=== PATIENT | male | born 1940 | race Caucasian/White ===

== ENCOUNTER → 2016-06-24 | Outpatient (CLI) | payer MEDICARE, OTHER ==
[~2016-06-24] MED LIST: AVOD0.5C PO; CARD4TAB2 PO; CEFT500T PO; DOXA4TAB PO; GABA300C2 PO; METF500T PO; TYLE650T30 PO
== END | disposition home or self-care (01) ==
LOC: M LAB 11:48
PROVIDERS: ATTEND Nurse Practitioner Adult Health
DX: R31.21 Asymptomatic microscopic hematuria (principal)

== ENCOUNTER → 2016-08-16 | Outpatient (REF) | payer MEDICARE, OTHER | LOC: M LAB REF 12:17 | PROVIDERS: ATTEND Internal Medicine | DX: I10 Essential (primary) hypertension (principal); N39.0 Urinary tract infection, site not specified ==

== ENCOUNTER → 2016-12-25 | Outpatient (CLI) | payer MEDICARE, OTHER | LOC: M LAB 15:14 | PROVIDERS: ATTEND Nurse Practitioner Adult Health | DX: N40.1 Benign prostatic hyperplasia with lower urinary tract symptoms (principal) | CPT/HCPCS: 36415; G0103 ==

== ENCOUNTER → 2017-05-08 | Outpatient (REF) | payer MEDICARE, OTHER | LOC: M LAB REF 17:33 | PROVIDERS: ATTEND Internal Medicine | DX: R30.0 Dysuria (principal) ==

== ENCOUNTER → 2017-08-23 | Outpatient (REF) | payer MEDICARE, OTHER | LOC: M LAB REF 17:03 | DX: R30.0 Dysuria (principal) | CPT/HCPCS: 87086 ==

== ENCOUNTER → 2017-09-14 | Outpatient (CLI) | payer MEDICARE, OTHER ==
[2017-09-14 14:08] LABS: BASO % 0.4 % (0.0-1.0); EOS # 0.2 10^3/uL (0.0-0.50); EOS % 2.3 % (0.0-3.0); HEMATOCRIT 37.3 % (42.0-52.0); HEMOGLOBIN 13.2 g/dl (13.5-17.5); IMMATURE GRANULOCYTE % 0.4 % (0-3.0); LYMPH # 1.7 10^3/uL (1.5-4.5); LYMPH % 22.8 % (24.0-44.0); MEAN CORPUSCULAR HEMOGLOBIN 32.2 pg (27.0-33.0); MEAN CORPUSCULAR HGB CONC 35.4 g/dl (32.0-36.5); MONO # 0.5 10^3/uL (0.0-0.8); MONO % 7.2 % (0.0-5.0); NEUTROPHILS % 66.9 % (36.0-66.0); PLATELET COUNT, AUTOMATED 163 10^3/uL (150-450); WHITE BLOOD COUNT 7.5 10^3/uL (4.0-10.0)
[2017-09-14 14:48] LABS: ANION GAP 5 MEQ/L (8-16); BLOOD UREA NITROGEN 24 MG/DL (7-18); CALCIUM LEVEL 8.7 MG/DL (8.8-10.2); CARBON DIOXIDE LEVEL 27 MEQ/L (21-32); CHLORIDE LEVEL 112 MEQ/L (98-107); CREATININE FOR GFR 1.18 MG/DL (0.70-1.30); GLOMERULAR FILTRATION RATE > 60.0 (>42); GLUCOSE, FASTING 135 MG/DL (70-100); POTASSIUM SERUM 4.3 MEQ/L (3.5-5.1); SODIUM LEVEL 144 MEQ/L (136-145)
== END ==
LOC: M LAB 13:42
DX: R94.39 Abnormal result of other cardiovascular function study (principal)
CPT/HCPCS: 80048

== ENCOUNTER → 2017-12-31 | Outpatient (CLI) | payer MEDICARE, OTHER ==
[2017-12-31 10:15] LABS: PSA SCREENING 3.13 NG/ML (< 4.0)
== END ==
LOC: M LAB 07:47
DX: N40.1 Benign prostatic hyperplasia with lower urinary tract symptoms (principal)
CPT/HCPCS: G0103

== ENCOUNTER → 2018-10-31 | Outpatient (REF) | payer MEDICARE, OTHER ==
[2018-11-03 00:06] LABS: Lyme Disease IgG/IgM Antibodie <0.91 ISR (0.00-0.90); Lyme Disease IgM Ab Quantitati <0.80 index (0.00-0.79)
== END ==
LOC: M LAB REF 16:57
PROVIDERS: ATTEND Internal Medicine
DX: M25.50 Pain in unspecified joint (principal)

== ENCOUNTER 2019-10-22 15:46 | Inpatient (IN) | payer MEDICARE, OTHER ==
[~2019-10-22] VITALS: Ht 195.6 cm; Wt 91.0 kg
[2019-10-22] MEDS ORDERED: LOSA25TA14 PO (16:45)
[2019-10-22] MEDS ORDERED: FINA5TAB2 PO (16:45)
[2019-10-22] MEDS ORDERED: MONT10TA4 PO (16:45)
[2019-10-22 16:47] LABS: BASO % 0.3 % (0.0-1.0); EOS # 0.1 10^3/uL (0.0-0.5); EOS % 1.5 % (0.0-3.0); HEMATOCRIT 34.5 % (42.0-52.0); HEMOGLOBIN 12.3 g/dl (13.5-17.5); MEAN CORPUSCULAR HEMOGLOBIN 32.4 pg (27.0-33.0); MEAN CORPUSCULAR HGB CONC 35.7 g/dl (32.0-36.5); MEAN CORPUSCULAR VOLUME 90.8 fl (80.0-96.0); MONO # 0.4 10^3/uL (0.0-0.8); MONO % 5.9 % (0.0-5.0); NEUTROPHILS # 5.3 10^3/uL (1.5-8.5); NEUTROPHILS % 77.7 % (36.0-66.0); PLATELET COUNT, AUTOMATED 159 10^3/uL (150-450); WHITE BLOOD COUNT 6.8 10^3/uL (4.0-10.0)
--- NOTE | 2019-10-22 16:53 | REP ---
Portable chest x-ray: Single view. History: CVA. No comparison study. Findings: The lungs are mildly hyperinflated but clear. Pleural angles are sharp. Heart size is normal. Monitoring electrodes are seen. Pulmonary vasculature is not increased. There are degenerative changes in the thoracic spine. Impression: Mild hyperinflation. Otherwise no acute disease. Electronically Signed by Duran Orosco MD 10/22/2019 04:44 P
[2019-10-22 16:59] LABS: INR 1.04; PROTHROMBIN TIME 13.3 SECONDS (11.8-14.0)
[2019-10-22 17:00] LABS: PARTIAL THROMBOPLASTIN TIME 28.5 SECONDS (25.0-38.4)
--- NOTE | 2019-10-22 17:00 | REP ---
CT BRAIN WITHOUT CONTRAST: HISTORY: CVA. No comparison head CT study. CT FINDINGS: Digital preliminary bilingual speech language pathologist radiograph is unremarkable. Bone window settings demonstrate an intact bony calvarium. There is some mild vascular calcification in the distal internal carotid arteries. Visualized paranasal sinuses are clear. No intraorbital abnormality is appreciated. On soft tissue window settings, there is generalized volume loss. Physiologic calcification is seen in the basal ganglia bilaterally. There is no evidence of intracranial hemorrhage. No acute infarction is apparent. There is no evidence of extra-axial fluid collection, mass, edema, or midline shift. IMPRESSION: Generalized atrophy and vascular calcification. Physiologic basal ganglia calcification. No acute intracranial lesion. Electronically Signed by Duran Orosco MD 10/23/2019 08:30 A
[2019-10-22 17:15] LABS: ALBUMIN 3.7 GM/DL (3.2-5.2); ALT/SGPT 30 U/L (12-78); BILIRUBIN,DIRECT 0.1 MG/DL (0.0-0.2); BILIRUBIN,TOTAL 0.3 MG/DL (0.2-1.0); BLOOD UREA NITROGEN 29 MG/DL (7-18); CALCIUM LEVEL 8.6 MG/DL (8.8-10.2); CARBON DIOXIDE LEVEL 28 MEQ/L (21-32); CHLORIDE LEVEL 107 MEQ/L (98-107); CK-MB VALUE MASS 2.8 NG/ML (<3.6); CPK CREATINE PHOSPHOKINASE 174 U/L (39-308); CREATININE FOR GFR 0.98 MG/DL (0.70-1.30); GLOMERULAR FILTRATION RATE > 60.0 (>42); GLUCOSE, FASTING 131 MG/DL (70-100); MB/CK RELATIVE INDEX 1.61 (< OR =4); POTASSIUM SERUM 4.4 MEQ/L (3.5-5.1); SODIUM LEVEL 140 MEQ/L (136-145); TOTAL PROTEIN 7.3 GM/DL (6.4-8.2); TROPONIN I < 0.02 NG/ML (< 0.10)
[2019-10-22] MEDS ORDERED: ASPIRIN 81 MG CHEW TABLET PO ONE (17:30)
[2019-10-22] MEDS ORDERED: APAP325T4 PO (17:31)
[2019-10-22] MEDS ORDERED: DOXA1TAB67 PO (17:31)
[2019-10-22] MEDS ORDERED: METF-838 PO (17:31)
[2019-10-22] MEDS ORDERED: GLUCOSE 4GM CHEW TABLET PO PRN (18:45)
[2019-10-22] MEDS ORDERED: GLUCAGON INJ 1MG VIAL SC PRN (18:45)
[2019-10-22] MEDS ORDERED: DEXTROSE 50% 50 ML SYRINGE IV PRN (18:45)
[2019-10-22] MEDS ORDERED: ACETAMINOPHEN TAB 650MG DOSE (2X325MG) PO PRN (18:45)
--- NOTE | 2019-10-22 18:48 | HPEPDOC ---
General Date of Admission October 22, 2019 at 18:28 Date of Service: October 22, 2019 Chief Complaint The patient is a 79-year-old male who presented to the hospital after experiencing visual changes for 1 hour History of Present Illness Patient is a 79-year-old male with a PMHx of HTN, NIDDM2, DLP, Recurrent bladder stones, BPH (Follows with Dr. Workman), Hx of Shingles (with resulting neuropathy) who was presented to the hospital after experiencing cloudy vision and unsteady gait earlier today. Patient reported that early this afternoon he was driving to the [place] alone at 1:45PM and began to experience blurring of his vision. He continued to drive and noticed that his vision continued to worsen. After 15 minutes, he decided to return back home because of the progression of his symptoms. Upon arrival to his home at 220PM he cut out of the car and noted that he was having an unsteady /staggered gait. By 2:45 PM patient had full resolution of his symptoms. He had contacted his daughter who had advised him to go to the emergency room for further evaluation. Patient reports that hes never experienced similar episodes in the past. Injuring this time. He had denied any chest pain, shortness of breath, palpitations, nausea, vomiting, abdominal pain. Patient has not experienced any LA or stroke in the past. He does not have any recent history of constipation, diarrhea, or urinary discomfort. . He does report some urination problems associated with his enlarged prostate. Has not experienced any fevers or chills. Notes that his appetite is fairly normal without any significant changes in his weight. Home Medications Scheduled Doxazosin Mesylate (Doxazosin) 4 Mg Tablet, 4 MG PO QHS, (Reported) Finasteride (Finasteride) 5 Mg Tablet, 5 MG PO QHS, (Reported) Losartan Potassium (Losartan Potassium) 25 Mg Tablet, 25 MG PO DAILY, (Reported) Metformin HCl (Metformin HCl ER) 500 Mg Tab.er.24h, 1,000 MG PO BID, (Reported) Montelukast Sodium (Montelukast Sodium) 10 Mg Tablet, 10 MG PO QHS, (Reported) Scheduled PRN Acetaminophen (Acetaminophen) 325 Mg Tablet, 650 MG PO Q4H PRN for PAIN, (Reported) Allergies Coded Allergies: No Known Allergies (Unverified , 4/11/14) Past Medical History Medical History HTN, NIDDM2, DLP, Recurrent bladder stones, BPH (Follows with Dr. Workman), Hx of Shingles (with resulting neuropathy) Surgical History Bilateral inguinal hernias were never repaired Excision of nodule on his posterior scalp Colonoscopy completed in [address] Workman Family History - Mother with a history of diabetes and stroke - Father with a history of Parkinsons Social History - Denies the use of alcohol, tobacco or illicit drugs - Denies recent travel or sick contacts - Lives alone - Occupation; patient is a retired tool room machinist Review of Systems Other systems 10 point review of systems complete, all negative otherwise stated in HPI Vital Signs - Vitals: BP 135/73, HR 65, RR 18, Sat 97%RA, Temp 97.8F - General: Lying in bed, No acute distress, Speaking in full sentences, AAOx3 - HEENT: NC, AT, PERRLA, EOMI - CVS: RRR, +S1S2 - Lungs: Fair air entry bilaterally, No appreciable wheezing / rales / rhonchi - Abdomen: Soft, Non-distended, Non-tender - Extremities: No lower extremity edema, No calf tenderness - Neuro: 5/5 strength in upper and lower extremities bilaterally, cranial nerves II through XII are grossly intact - Skin: No visible rashes Laboratory Data Labs 24H Laboratory Tests 2 10/22/19 16:31: Immature Granulocyte % (Auto) 0.6, Neutrophils (%) (Auto) 77.7H, Lymphocytes (%) (Auto) 14.0L, Monocytes (%) (Auto) 5.9H, Eosinophils (%) (Auto) 1.5, Basophils (%) (Auto) 0.3, Neutrophils # (Auto) 5.3, Lymphocytes # (Auto) 1.0L, Monocytes # (Auto) 0.4, Eosinophils # (Auto) 0.1, Basophils # (Auto) 0.0, Nucleated Red Blood Cells % (auto) 0.0, Prothrombin Time 13.3, Prothromb Time International Ratio 1.04, Activated Partial Thromboplast Time 28.5, Anion Gap 5L, Glomerular Filtration Rate > 60.0, Calcium Level 8.6L, Total Bilirubin 0.3, Direct Bilirubin 0.1, Aspartate Amino Transf (AST/SGOT) 17, Alanine Aminotransferase (ALT/SGPT) 30, Alkaline Phosphatase 88, Total Creatine Kinase 174, Creatine Kinase MB 2.8, Creatine Kinase MB Relative Index 1.61, Troponin I < 0.02, Total Protein 7.3, Albumin 3.7, Albumin/Globulin Ratio 1.0, Thyroid Stimulating Hormone (TSH) 2.300 10/22/19 16:38: Bedside Glucose (Misc Panel) 130H CBC/BMP Laboratory Tests 10/22/19 16:31 Plan / VTE VTE Prophylaxis Ordered?: Yes Plan Plan Transient blurred vision/unsteady gait - possibly 2/2 TIA, less likely 2/2 CVA - Patient has presented to the emergency room after experiencing an hour duration of visual changes and unsteady gait - Patient had resolution of his symptoms prior to arrival to the emergency room - No prior history of strokes or heart attacks - Patient has been advised to take statins as an outpatient, however, had refused because of myalgias - Physical currently reveals full strength upper and lower strength is bilaterally without any deficits in cranial nerves II through XII - CT head 10/21: Generalized atrophy and vascular calcification. Physiologic basal ganglia calcification. No acute intracranial lesion. - At this point, we will admit patient to the telemetry floor - Continue with neurological checks every 4 hours - Will check MRI and MRA of brain, duplex ultrasound of carotid and echocardiogram - Patient has received aspirin in the ER will c/w ASA 81 daily - Patient has agreed to take pravastatin HTN - Patients blood pressure while examining him in the room was systolics of 150 - Will allow for permissive hypertension (re: pending MRI) - Will continue to monitor for now - Awaiting results of MRI; will optimize blood pressure control if no evidence of stroke - Will hold Losartan for now NIDDM2 - Will check A1c - Will hold Metformin - Will start ISS DLP - Will check lipid panel - Will start Pravastatin Recurrent bladder stones / BPH - Will start Doxazosin and Finasteride - Follows with Dr. Workman Hx of Shingles (with resulting neuropathy) - c/w Tylenol PRN DVT prophylaxis - Will start Heparin CATHRYN VALENZUELA MD October 22, 2019 18:48
--- NOTE | 2019-10-22 19:55 | REPVR ---
PROCEDURE INFORMATION: Exam: MR Head Without Contrast Exam date and time: 10/22/2019 6:28 PM Age: 79 years old Clinical indication: Visual disturbance; Additional info: Possible stroke / blurred vision TECHNIQUE: Imaging protocol: MR of the head without contrast. COMPARISON: CT Head without contrast 10/22/2019 4:16 PM FINDINGS: Brain: There is a small asymmetric focus of hyperintensity on diffusion involving the right occipital cortex. This is visualized on series 504 frame 12. No abnormal signal intensity is visualized on the remaining sequences. No hypointensity is visualized on the ADC trace sequence. This can be contributed by artifact although subacute infarct is also considered. There are scattered foci of FLAIR hyperintensity within the cerebral white matter. There is no mass effect or restricted diffusion associated with these foci. In a patient this age, this likely represents chronic small vessel ischemic disease. Magnetic susceptibility mineralization or hemosiderin identified within the bilateral basal ganglia. No intracranial mass effect. No cerebral edema. Ventricles: There is mild prominence of the ventricles and sulci, compatible with atrophy. Bones/joints: Unremarkable, as visualized. Soft tissues: Unremarkable, as visualized. Sinuses: Normal as visualized. No acute sinusitis. Mastoid air cells: No mastoid effusion. Orbits: No acute abnormality visualized. IMPRESSION: 1. There is a small asymmetric focus of hyperintensity on diffusion involving the right occipital cortex. This can be contributed by artifact although subacute infarct is also considered. 2. There are scattered foci of FLAIR hyperintensity within the cerebral white matter. In a patient this age, this likely represents chronic small vessel ischemic disease. 3. Mild atrophy. 4. Additional findings described above. Electronically signed by: Anurag Chin On 10/22/2019 19:55:24 PM
--- NOTE | 2019-10-22 20:02 | REPVR ---
PROCEDURE INFORMATION: Exam: MR Angiogram Head Without Contrast, Arteries Exam date and time: 10/22/2019 6:28 PM Age: 79 years old Clinical indication: Visual disturbance; Diplopia; Additional info: Possible stroke / blurred vision TECHNIQUE: Imaging protocol: MR angiogram head without contrast. Exam focused on the arteries. COMPARISON: CT Head without contrast 10/22/2019 4:16 PM FINDINGS: Anterior cerebral arteries: Intracranial segment is patent with no significant stenosis. No aneurysm. Right internal carotid artery: Less than 50% luminal narrowing or stenosis of the petrous right internal carotid artery. No aneurysm. Right middle cerebral artery: No occlusion or significant stenosis. No aneurysm. Right posterior cerebral artery: Persistence of the origin of the right posterior cerebral artery. The P1 segment of the right EDGE BLACKER is hypoplastic. No significant stenosis or occlusion of the remaining right EDGE BLACKER. There is a decrease in the signal intensity on reconstructed images involving the right EDGE BLACKER, without significant stenosis or occlusion on source images. No aneurysm. Right vertebral artery: No occlusion or significant stenosis. No aneurysm. 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 No aneurysm. Left middle cerebral artery: No occlusion or significant stenosis. No aneurysm. Left posterior cerebral artery: No occlusion or significant stenosis. No aneurysm. Left vertebral artery: No occlusion or significant stenosis. No aneurysm. Basilar artery: No occlusion or significant stenosis. No aneurysm. IMPRESSION: 1. 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 2. Less than 50% luminal narrowing or stenosis of the petrous right internal carotid artery. 3. Additional findings described above. Electronically signed by: Anurag Chin On 10/22/2019 20:02:47 PM
--- NOTE | 2019-10-22 20:27 | REPVR ---
PROCEDURE INFORMATION: Exam: US Duplex Bilateral Extracranial Arteries Exam date and time: 10/22/2019 7:57 PM Age: 79 years old Clinical indication: Visual disturbance and walking, difficulty; Additional info: Possible stroke TECHNIQUE: Imaging protocol: Real-time Duplex ultrasound scan of the bilateral carotid and vertebral arteries combining armendariz scale, color Doppler and spectral waveform analysis. Bilateral exam. COMPARISON: CT Head without contrast 10/22/2019 4:16 PM FINDINGS: Right common carotid artery: No occlusion or stenosis. Waveforms are normal. Peak systolic velocity of 102.7 cm/s. Right internal carotid artery: Mild atherosclerotic plaque involves the right carotid bifurcation. The peak systolic velocity within the proximal right internal carotid artery is 84.9 cm/s. This is consistent with less than 50% stenosis. Right ICA/CCA ratio: 0.83. Right external carotid artery: No stenosis in the origin. Right vertebral artery: Antegrade flow. Left common carotid artery: No occlusion or stenosis. Waveforms are normal. Peak systolic velocity of 112.1 cm/s. Left internal carotid artery: Mild atherosclerotic plaque involves the left carotid bifurcation. The peak systolic velocity within the proximal left internal carotid artery is 58.6 cm/s. This is consistent with less than 50% stenosis. Left ICA/CCA ratio: 0.52. Left external carotid artery: No stenosis in the origin. Left vertebral artery: Antegrade flow. IMPRESSION: 1. Mild atherosclerotic plaque involves the bilateral carotid bifurcations. Less than 50% stenosis of the proximal internal carotid arteries bilaterally. 2. Additional findings described above. REFERENCES: SRU CRITERIA. The degree of internal carotid artery stenosis is based on criteria defined by the Society of Radiologists in Ultrasound (SRU). Normal is no stenosis. Mild is less than 50% stenosis. Moderate is 50-69% stenosis. Severe is greater than 69% stenosis to near occlusion. Near occlusion is a markedly narrowed lumen. Total occlusion is no detectable patent lumen. Electronically signed by: Anurag Chin On 10/22/2019 20:27:11 PM
[2019-10-22 21:00] VITALS: BP 158/68
[2019-10-22] MEDS ORDERED: HumaLOG INSULIN (NovoLOG) PER UNIT SC SCH (21:00)
[2019-10-22] MEDS ORDERED: FINASTERIDE 5 MG TAB PO SCH (21:00)
[2019-10-22] MEDS ORDERED: MONTELUKAST 10 MG TAB PO SCH (21:00)
[2019-10-22] MEDS ORDERED: DOXAZOSIN MESYLATE 4 MG TAB PO SCH (21:00)
[2019-10-22] MEDS ORDERED: PRAVASTATIN 20 MG TAB PO SCH (21:00)
--- NOTE | 2019-10-22 21:16 | ECGEPIP ---
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
[2019-10-22] MEDS: HEPARIN SOD (PORCINE) 5000UNITS/ML VIAL (J1644 PER 1000UNITS) SQ SCH (21:46)
[2019-10-23] VITALS: BP 138/76
[2019-10-23 04:00] VITALS: BP 122/68
[2019-10-23] MEDS: HEPARIN SOD (PORCINE) 5000UNITS/ML VIAL (J1644 PER 1000UNITS) SQ SCH (05:00)
[2019-10-23 05:10] LABS: BASO % 0.3 % (0.0-1.0); EOS # 0.2 10^3/uL (0.0-0.5); EOS % 2.6 % (0.0-3.0); HEMATOCRIT 32.9 % (42.0-52.0); HEMOGLOBIN 11.6 g/dl (13.5-17.5); LYMPH # 1.7 10^3/uL (1.5-5.0); LYMPH % 27.4 % (24.0-44.0); MEAN CORPUSCULAR HEMOGLOBIN 31.8 pg (27.0-33.0); MEAN CORPUSCULAR HGB CONC 35.3 g/dl (32.0-36.5); MEAN CORPUSCULAR VOLUME 90.1 fl (80.0-96.0); MONO # 0.4 10^3/uL (0.0-0.8); MONO % 6.9 % (0.0-5.0); NEUTROPHILS # 3.9 10^3/uL (1.5-8.5); NEUTROPHILS % 62.2 % (36.0-66.0); PLATELET COUNT, AUTOMATED 145 10^3/uL (150-450); RED BLOOD COUNT 3.65 10^6/uL (4.30-6.10); WHITE BLOOD COUNT 6.2 10^3/uL (4.0-10.0)
[2019-10-23 05:26] LABS: HEMOGLOBIN A1c 6.8 %
[2019-10-23 05:29] LABS: BLOOD UREA NITROGEN 24 MG/DL (7-18); CALCIUM LEVEL 8.3 MG/DL (8.8-10.2); CARBON DIOXIDE LEVEL 23 MEQ/L (21-32); CHLORIDE LEVEL 111 MEQ/L (98-107); CHOLESTEROL LEVEL 165 MG/DL (<200); CHOLESTEROL RISK RATIO 4.583 (<5); GLOMERULAR FILTRATION RATE > 60.0 (>42); GLUCOSE, FASTING 117 MG/DL (70-100); HDL CHOLESTEROL 36 MG/DL (>40); LDL CHOLESTEROL 83 MG/DL (<100); MAGNESIUM LEVEL 1.9 MG/DL (1.8-2.4); NON-HDL-C 129 MG/DL; POTASSIUM SERUM 3.9 MEQ/L (3.5-5.1); SODIUM LEVEL 142 MEQ/L (136-145); TRIGLYCERIDES LEVEL 228 MG/DL (<150)
[2019-10-23] MEDS: HumaLOG INSULIN (NovoLOG) PER UNIT SC SCH ×2 (07:30→13:47)
[2019-10-23 08:00] VITALS: BP 142/84
[2019-10-23] MEDS ORDERED: SLF 3 ML SYR IV PRN (08:30)
[2019-10-23] MEDS ORDERED: PRAV1TAB39 PO (08:58)
[2019-10-23] MEDS ORDERED: ASPI81CH8 PO (08:58)
[2019-10-23] MEDS ORDERED: ASPIRIN 81 MG CHEW TABLET PO SCH (09:00)
[2019-10-23] MEDS ORDERED: LOSARTAN 25 MG TAB PO SCH (09:00)
[2019-10-23 09:06] VITALS: BP 142/84
--- NOTE | 2019-10-23 11:28 | DS.PDOC ---
Discharge Summary General Date of Admission October 22, 2019 at 18:28 Date of Discharge 10/23/2019 Discharge Summary PROCEDURES PERFORMED DURING STAY: [None]. ADMITTING DIAGNOSES / DISCHARGE DIAGNOSES: Transient blurred vision/unsteady gait - possibly 2/2 TIA, possibly 2/2 subacute CVA at R occipital region HTN NIDDM2 DLP Recurrent bladder stones / BPH Hx of Shingles (with resulting neuropathy) DVT prophylaxis COMPLICATIONS/CHIEF COMPLAINT: Blurred Vision. HISTORY OF PRESENT ILLNESS: Patient is a 79-year-old male with a PMHx of HTN, NIDDM2, DLP, Recurrent bladder stones, BPH (Follows with Dr. Workman), Hx of Shingles (with resulting neuropathy) who was presented to the hospital after experiencing cloudy vision and unsteady gait earlier today. Patient reported that early this afternoon he was driving to the [place] alone at 1:45PM and began to experience blurring of his vision. He continued to drive and noticed that his vision continued to worsen. After 15 minutes, he decided to return back home because of the progression of his symptoms. Upon arrival to his home at 220PM he cut out of the car and noted that he was having an unsteady/staggered gait. By 2:45 PM patient had full resolution of his symptoms. He had contacted his daughter who had advised him to go to the emergency room for further evaluation. Patient was admitted to the hospitalist service for further evaluation and treatment. HOSPITAL COURSE: Transient blurred vision/unsteady gait - possibly 2/2 TIA, possibly 2/2 subacute CVA at R occipital region - Currently patient has had resolution of his symptoms - No prior history of strokes or heart attacks - Patient has been advised to take statins as an outpatient, however, had refused because of myalgias - No neurological deficits noted on exam today - CT head 10/21: Generalized atrophy and vascular calcification. Physiologic basal ganglia calcification. No acute intracranial lesion. - MRI brain 10/21: 1. There is a small asymmetric focus of hyperintensity on diffusion involving the right occipital cortex. This can be contributed by artifact although subacute infarct is also considered. 2. There are scattered foci of FLAIR hyperintensity within the cerebral white matter. In a patient this age, this likely represents chronic small vessel ischemic disease. 3. Mild atrophy. 4. Additional findings described above. - MRA brain 10/21: 1. 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 2. Less than 50% luminal narrowing or stenosis of the petrous right internal carotid artery. 3. Additional findings described above. - Duplex US Carotid 10/21: 1. Mild atherosclerotic plaque involves the bilateral carotid bifurcations. Less than 50% stenosis of the proximal internal carotid arteries bilaterally. 2. Additional findings described above. - Echocardiogram will be completed prior to discharge; patient will follow up with PCP for results - Advised importance with compliance with ASA 81 and Pravastatin daily - Will have outpatient follow up with PCP and Neurology within 7 days HTN - BP better controlled - c/w Losartan for now NIDDM2 - A1c of 6..8 - c/w ISS while inpatient; will resume Metformin on discharge DLP - Lipid panel with elevated triglycerides - Will continue with current medications and have outpatient follow up with PCP for follow up studies - c/w Pravastatin Recurrent bladder stones / BPH - c/w Doxazosin and Finasteride - Follows with Dr. Workman Hx of Shingles (with resulting neuropathy) - c/w Tylenol PRN DVT prophylaxis - c/w Heparin DISCHARGE MEDICATIONS: Please see below. ALLERGIES: Please see below. PHYSICAL EXAMINATION ON DISCHARGE: Vitals (See below) General: Lying in bed, appears comfortable, AAOx3 HEENT: NC, AT CVS: RRR, +S1S2 Lungs: Fair air entry b/l, no appreciable wheezing / rhonchi / crackles Abdomen: Soft, non-distended / non-tender Extremities: No evidence of LE edema, - Calf tenderness LABORATORY DATA: Please see below. ACTIVITY: [As tolerated]. DISCHARGE PLAN: Follow-up with [facility] Loa[facility] and neurology within 7 days Remain compliant with treatment plan and medications Return to the ER if you experience any problems DISPOSITION: Home DISCHARGE CONDITION: [Stable]. TIME SPENT ON DISCHARGE: 35 minutes Vital Signs/I&Os Vital Signs Date Time Temp Pulse Resp B/P (MAP) Pulse Ox O2 Delivery O2 Flow Rate FiO2 10/23/19 09:06 142/84 10/23/19 08:00 97.3 67 18 98 Room Air I&O- Last 24 Hours up to 6 AM 10/23/19 05:59 Intake Total 0 ml Output Total 550 ml Balance -550 ml Laboratory Data Labs 24H Laboratory Tests 2 10/22/19 16:31: Immature Granulocyte % (Auto) 0.6, Neutrophils (%) (Auto) 77.7H, Lymphocytes (%) (Auto) 14.0L, Monocytes (%) (Auto) 5.9H, Eosinophils (%) (Auto) 1.5, Basophils (%) (Auto) 0.3, Neutrophils # (Auto) 5.3, Lymphocytes # (Auto) 1.0L, Monocytes # (Auto) 0.4, Eosinophils # (Auto) 0.1, Basophils # (Auto) 0.0, Nucleated Red Blood Cells % (auto) 0.0, Prothrombin Time 13.3, Prothromb Time International Ratio 1.04, Activated Partial Thromboplast Time 28.5, Anion Gap 5L, Glomerular Filtration Rate > 60.0, Calcium Level 8.6L, Total Bilirubin 0.3, Direct Bilirubin 0.1, Aspartate Amino Transf (AST/SGOT) 17, Alanine Aminotransferase (ALT/SGPT) 30, Alkaline Phosphatase 88, Total Creatine Kinase 174, Creatine Kinase MB 2.8, Creatine Kinase MB Relative Index 1.61, Troponin I < 0.02, Total Protein 7.3, Albumin 3.7, Albumin/Globulin Ratio 1.0, Thyroid Stimulating Hormone (TSH) 2.300 10/22/19 16:38: Bedside Glucose (Misc Panel) 130H 10/22/19 21:26: Bedside Glucose (Misc Panel) 259H 10/23/19 04:45: Immature Granulocyte % (Auto) 0.6, Neutrophils (%) (Auto) 62.2, Lymphocytes (%) (Auto) 27.4, Monocytes (%) (Auto) 6.9H, Eosinophils (%) (Auto) 2.6, Basophils (%) (Auto) 0.3, Neutrophils # (Auto) 3.9, Lymphocytes # (Auto) 1.7, Monocytes # (Auto) 0.4, Eosinophils # (Auto) 0.2, Basophils # (Auto) 0.0, Nucleated Red Blood Cells % (auto) 0.0, Anion Gap 8, Glomerular Filtration Rate > 60.0, Calcium Level 8.3L, Estimated Mean Plasma Glucose 148H, Hemoglobin A1c 6.8, Magnesium Level 1.9, Triglycerides Level 228H, Total Cholesterol 165, LDL Cholesterol 83, Non-HDL Cholesterol (LDL + VLDL) 129, Total HDL Cholesterol 36L, Cholesterol/HDL Ratio 4.583 CBC/BMP Laboratory Tests 10/22/19 16:31 10/23/19 04:45 FSBS Laboratory Tests Test 10/22/19 16:38 10/22/19 21:26 Range/Units Bedside Glucose (Misc Panel) 130 259 83-110 MG/DL Discharge Medications Scheduled Aspirin (Children's Aspirin) 81 Mg Tab.chew, 81 MG PO DAILY Doxazosin Mesylate (Doxazosin) 4 Mg Tablet, 4 MG PO QHS, (Reported) Finasteride (Finasteride) 5 Mg Tablet, 5 MG PO QHS, (Reported) Losartan Potassium (Losartan Potassium) 25 Mg Tablet, 25 MG PO DAILY, (Reported) Metformin HCl (Metformin HCl ER) 500 Mg Tab.er.24h, 1,000 MG PO BID, (Reported) Montelukast Sodium (Montelukast Sodium) 10 Mg Tablet, 10 MG PO QHS, (Reported) Pravastatin Sodium (Pravachol) 20 Mg Tablet, 40 MG PO QHS Scheduled PRN Acetaminophen (Acetaminophen) 325 Mg Tablet, 650 MG PO Q4H PRN for PAIN, (Reported) Allergies Coded Allergies: No Known Allergies (Unverified , 09/12/13) CATHRYN VALENZUELA MD October 23, 2019 11:28
[2019-10-23] MEDS ORDERED: SLF 3 ML SYR IV SCH (14:00)
--- NOTE | 2019-10-24 05:12 | ECHO ---
DATE OF PROCEDURE: 10/23/2019 PATIENT LOCATION: Room 3214. REFERRING PROVIDER: Dr. Mana Rodriguez REASON FOR THE STUDY: CVA. 2D MEASUREMENTS: IVS: 1.0 cm LV: 4.8 cm LVPW: 1.1 cm LA: 3.7 cm Aorta: 3.6 cm IVC: 2.3 cm DOPPLER MEASUREMENTS: Peak velocity across the aortic valve 1.2 m/s Peak velocity across the LVOT: 0.77 m/s Mitral E: 0.72 Mitral A: 0.93 with a ratio of 0.8 Maximum tricuspid valve velocity: 2.4 m/s 2D COMMENTS: 1. Normal left ventricular size, wall thickness, and normal global left ventricular systolic function. The estimated left ventricular systolic ejection fraction is 60-65%. 2. Normal left atrium. The right atrium appeared to be mildly enlarged. Normal right ventricle. 3. The atrial septum appeared to be normal without evidence of defect or shunt. 4. Trace pericardial effusion noted; no evidence of cardiac tamponade. 5. Normal aortic valve, mitral valve, tricuspid valve, and pulmonic valve. The proximal pulmonary artery branches were not well visualized. 6. The inferior vena cava was mildly enlarged; central venous pressure might be elevated. DOPPLER: Only trace to mild tricuspid regurgitation detected. The calculated pulmonary artery systolic pressure varies between 30 to 40 mmHg. Abnormal relaxation pattern was noted across the mitral valve leaflets as well as the mitral valve annulus, consistent with features of grade 1 left ventricular diastolic dysfunction. IMPRESSION: 1. Normal global left ventricular systolic function. There were some features of left ventricular diastolic dysfunction manifested by abnormal relaxation. 2. Trace to mild tricuspid regurgitation with probably mild pulmonary hypertension. 3. Trace pericardial effusion; no evidence of cardiac tamponade. 4. The inferior vena cava was mildly enlarged; central venous pressure might be elevated.
== END 2019-10-23 14:39 | disposition home or self-care (01) | DRG 66 ==
LOC: M ED 15:46 → M ED INP 18:28 → ENRESERV 18:39 → M PCU 21:15
PROVIDERS: ADMIT Internal Medicine; ATTEND Internal Medicine
DX: I63.59 Cerebral infarction due to unspecified occlusion or stenosis of other cerebral artery (principal); H53.8 Other visual disturbances; I10 Essential (primary) hypertension; E11.9 Type 2 diabetes mellitus without complications; E78.5 Hyperlipidemia, unspecified; I65.23 Occlusion and stenosis of bilateral carotid arteries; N40.0 Benign prostatic hyperplasia without lower urinary tract symptoms; R26.81 Unsteadiness on feet; Z79.84 Long term (current) use of oral hypoglycemic drugs; Z79.899 Other long term (current) drug therapy; Z87.442 Personal history of urinary calculi

== ENCOUNTER → 2020-01-19 | Outpatient (CLI) | payer MEDICARE, OTHER ==
[~2020-01-19] MED LIST changes: +APAP325T4 PO; +ASPI81CH8 PO; +DOXA1TAB67 PO; +DOXY100C37 PO; +FINA5TAB2 PO; +LOSA25TA14 PO; +METF-838 PO; +MONT10TA4 PO; +PRAV1TAB39 PO
== END ==
LOC: M LAB 12:24
PROVIDERS: ATTEND Nurse Practitioner Adult Health
DX: Z12.5 Encounter for screening for malignant neoplasm of prostate (principal); N42.9 Disorder of prostate, unspecified

== ENCOUNTER 2020-04-09 14:35 | Emergency (ER) | payer MEDICARE, OTHER ==
[~2020-04-09] VITALS: Ht 190.5 cm; Wt 98.4 kg
[~2020-04-09 14:35] MED LIST changes: -DOXY100C37 PO
[2020-04-09 16:08] LABS: BASO % 0.2 % (0.0-1.0); EOS % 0.1 % (0.0-3.0); HEMATOCRIT 35.1 % (42.0-52.0); HEMOGLOBIN 12.2 g/dl (13.5-17.5); LYMPH # 0.7 10^3/uL (1.5-5.0); LYMPH % 3.6 % (24.0-44.0); MEAN CORPUSCULAR HEMOGLOBIN 31.9 pg (27.0-33.0); MEAN CORPUSCULAR HGB CONC 34.8 g/dl (32.0-36.5); MEAN CORPUSCULAR VOLUME 91.9 fl (80.0-96.0); MONO % 4.8 % (0.0-5.0); NEUTROPHILS # 17.9 10^3/uL (1.5-8.5); NEUTROPHILS % 90.4 % (36.0-66.0); PLATELET COUNT, AUTOMATED 168 10^3/uL (150-450); RED BLOOD COUNT 3.82 10^6/uL (4.30-6.10); WHITE BLOOD COUNT 19.8 10^3/uL (4.0-10.0)
[2020-04-09] MEDS ORDERED: NS 1,000 ML IV ONE (16:15)
[2020-04-09 16:36] LABS: C REACTIVE PROTEIN QUANTITATIV 3.01 MG/DL (0.00-0.30); CALCIUM LEVEL 9.1 MG/DL (8.8-10.2); CREATININE FOR GFR 1.42 MG/DL (0.70-1.30); GLOMERULAR FILTRATION RATE 51.2 (>42); POTASSIUM SERUM 4.5 MEQ/L (3.5-5.1)
[2020-04-09 16:52] LABS: ERYTHROCYTE SEDIMENTATION RATE 33 mm/hr (0-20)
[2020-04-09] MEDS ORDERED: cefTRIAXone SOD 1 GM in D5W MINI-BAG PLUS 50 ML IV ONE (17:00)
[2020-04-09] MEDS ORDERED: LIDOCAINE 2% MDV 20ML VIAL SC ONE (17:00)
[2020-04-09] MEDS ORDERED: DOXY100C37 PO (18:41)
[2020-04-09 19:06] VITALS: BP 139/70
== END 2020-04-09 19:05 | disposition home or self-care (01) ==
LOC: M ED 14:35
DX: L03.032 Cellulitis of left toe (principal); E11.9 Type 2 diabetes mellitus without complications; I10 Essential (primary) hypertension; E78.5 Hyperlipidemia, unspecified; N40.0 Benign prostatic hyperplasia without lower urinary tract symptoms; N17.9 Acute kidney failure, unspecified; Z79.899 Other long term (current) drug therapy; Z79.82 Long term (current) use of aspirin; Z79.84 Long term (current) use of oral hypoglycemic drugs
CPT/HCPCS: 10060; 80047; 80048; 83605; 85025; 85652; 86140; 87070; 87077; 87186; 87205; 96361; 96365; 99284; J0696

== ENCOUNTER → 2020-04-19 | Outpatient (REF) | payer MEDICARE, OTHER ==
[~2020-04-19] MED LIST changes: +DOXY100C37 PO
== END ==
LOC: M LAB REF 12:27
PROVIDERS: ATTEND Internal Medicine
DX: M15.9 Polyosteoarthritis, unspecified (principal); L03.032 Cellulitis of left toe

== ENCOUNTER → 2021-03-29 | Outpatient (CLI) | payer MEDICARE, OTHER ==
[~2021-03-29] MED LIST changes: +DOXY-443 PO; -DOXY100C37 PO; +MONT10TA10 PO; -MONT10TA4 PO
[2021-03-29 18:47] LABS: BLOOD UREA NITROGEN 27 MG/DL (7-18); CREATININE FOR GFR 1.08 MG/DL (0.70-1.30); GLOMERULAR FILTRATION RATE > 60.0 (>35)
== END ==
LOC: M LAB 16:20
PROVIDERS: ATTEND Otolaryngology
DX: R22.1 Localized swelling, mass and lump, neck (principal)

== ENCOUNTER → 2021-04-04 | Outpatient (CLI) | payer MEDICARE, OTHER ==
[~2021-04-04] MED LIST changes: +ISOVUE-370 76% 100ML VIAL As Ordered ONE
--- NOTE | 2021-04-04 09:59 | REPVR ---
PROCEDURE INFORMATION: Exam: CT Neck With Contrast Exam date and time: 04/04/2021 9:28 AM Age: 81 years old Clinical indication: Condition or disease; Other: Enlarged parotid mass TECHNIQUE: Imaging protocol: Computed tomography images of the neck with contrast. Radiation optimization: All CT scans at this facility use at least one of these dose optimization techniques: automated exposure control; mA and/or kV adjustment per patient size (includes targeted exams where dose is matched to clinical indication); or iterative reconstruction. Contrast material: ISOVUE 370; Contrast volume: 75 ml; Contrast route: INTRAVENOUS (IV); COMPARISON: None available. FINDINGS: Nasopharynx: Unremarkable. Oropharynx: Unremarkable. No significant tonsillar enlargement. Hypopharynx: Unremarkable. Larynx: Unremarkable. Normal epiglottis. Retropharyngeal space: Unremarkable. Submandibular/Parotid glands: There is a heterogeneous 3.4 x 2.3 x 3.5 cm heterogeneously enhancing right parotid mass. Thyroid: Normal. No enlarged or calcified nodules. Lymph nodes: Unremarkable. No lymphadenopathy. Trachea: Visualized trachea is unremarkable. Lungs: Unremarkable as visualized. Bones/joints: There is multilevel degenerative disc disease and spondylosis. No acute fracture. Soft tissues: Unremarkable. No significant soft tissue swelling. 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 Tissue sampling is recommended. Electronically signed by: Soo Umanzor On 04/04/2021 09:59:15 AM
== END ==
LOC: M RAD 09:12
PROVIDERS: ATTEND Otolaryngology
DX: R22.1 Localized swelling, mass and lump, neck (principal)
CPT/HCPCS: 70491; Q9967

== ENCOUNTER → 2021-05-02 | Outpatient (CLI) | payer MEDICARE, OTHER ==
[~2021-05-02] MED LIST changes: -ISOVUE-370 76% 100ML VIAL As Ordered ONE; +LIDOCAINE 1% MDV 20ML VIAL As Ordered ONE; +LOSA25TA13 PO; -LOSA25TA14 PO; -MONT10TA10 PO; +MONT10TA97 PO
[2021-05-02 11:45] VITALS: BP 138/89
== END ==
LOC: M IRPRO 11:35
PROVIDERS: ATTEND Otolaryngology
DX: R86.9 Unspecified abnormal finding in specimens from male genital organs (principal); D37.030 Neoplasm of uncertain behavior of the parotid salivary glands

== ENCOUNTER → 2021-10-19 | Outpatient (CLI) | payer MEDICARE, OTHER ==
[~2021-10-19] MED LIST changes: -LIDOCAINE 1% MDV 20ML VIAL As Ordered ONE
[2021-10-19 17:06] LABS: BLOOD UREA NITROGEN 27 MG/DL (7-18); CREATININE FOR GFR 1.14 MG/DL (0.70-1.30); GLOMERULAR FILTRATION RATE > 60.0 (>35)
== END ==
LOC: M LAB 16:18
PROVIDERS: ATTEND Otolaryngology
DX: H90.3 Sensorineural hearing loss, bilateral (principal)

== ENCOUNTER → 2021-10-21 | Outpatient (CLI) | payer MEDICARE, OTHER | LOC: M PLARAD 08:51 | PROVIDERS: ATTEND Otolaryngology | DX: H90.3 Sensorineural hearing loss, bilateral (principal) ==

== ENCOUNTER → 2022-01-16 | Outpatient (CLI) | payer MEDICARE, OTHER | LOC: M LAB 12:32 | PROVIDERS: ATTEND Nurse Practitioner Adult Health | DX: N40.1 Benign prostatic hyperplasia with lower urinary tract symptoms (principal) ==

== ENCOUNTER → 2022-06-21 | Outpatient (REF) | payer MEDICARE, OTHER ==
[2022-06-22 17:24] LABS: PERCENT SATURATION 23.7 % (19.7-50.0)
[2022-06-22 17:26] LABS: FERRITIN 349.7 NG/ML (10.5-307.3)
== END ==
LOC: M LAB REF 16:22
PROVIDERS: ATTEND Internal Medicine
DX: D64.9 Anemia, unspecified (principal)

== ENCOUNTER 2022-07-22 08:41 | Emergency (ER) | payer MEDICARE, OTHER ==
[~2022-07-22] VITALS: Ht 193 cm; Wt 99.1 kg
[2022-07-22 09:27] LABS: BASO % 0.3 % (0.0-1.0); EOS # 0.1 10^3/uL (0.0-0.5); EOS % 1.7 % (0.0-3.0); HEMATOCRIT 30.8 % (42.0-52.0); HEMOGLOBIN 10.7 g/dl (13.5-17.5); LYMPH # 0.9 10^3/uL (1.5-5.0); LYMPH % 11.3 % (24.0-44.0); MEAN CORPUSCULAR HEMOGLOBIN 31.8 pg (27.0-33.0); MEAN CORPUSCULAR HGB CONC 34.7 g/dl (32.0-36.5); MEAN CORPUSCULAR VOLUME 91.4 fl (80.0-96.0); MONO # 0.3 10^3/uL (0.0-0.8); MONO % 3.9 % (2.0-8.0); NEUTROPHILS # 6.3 10^3/uL (1.5-8.5); NEUTROPHILS % 81.9 % (36.0-66.0); PLATELET COUNT, AUTOMATED 134 10^3/uL (150-450); RED BLOOD COUNT 3.37 10^6/uL (4.30-6.10); WHITE BLOOD COUNT 7.7 10^3/uL (4.0-10.0)
[2022-07-22 09:33] LABS: INR 0.97; PROTHROMBIN TIME 13.1 SECONDS (12.5-14.5)
[2022-07-22 09:34] LABS: PARTIAL THROMBOPLASTIN TIME 28.4 SECONDS (24.8-34.2)
[2022-07-22 09:46] LABS: CK-MB VALUE MASS 2.3 NG/ML (<3.6)
[2022-07-22 09:48] LABS: ALBUMIN 3.4 G/DL (3.2-5.2); BILIRUBIN,DIRECT 0.1 MG/DL (<0.4); BILIRUBIN,TOTAL 0.4 MG/DL (0.3-1.2); MB/CK RELATIVE INDEX 1.13 (< OR =4); TOTAL PROTEIN 6.6 G/DL (5.7-8.2)
[2022-07-22 09:50] LABS: RSV AMPLIFICATION NEGATIVE (NEGATIVE); THYROID STIMULATING HORMONE 3.877 uIU/ML (0.55-4.78)
[2022-07-22 09:51] LABS: FREE T4 0.98 NG/DL (0.89-1.76)
[2022-07-22] MEDS ORDERED: ISOVUE-370 76% 100ML VIAL As Ordered ONE (09:53)
[2022-07-22 10:24] LABS: CK-MB VALUE MASS 3.3 NG/ML (<3.6)
[2022-07-22 10:26] LABS: MB/CK RELATIVE INDEX 1.68 (< OR =4)
[2022-07-22] MEDS ORDERED: GI COCKTAIL 50ML BTL(HYOSCYAMINE/MAALOX/LIDOCAINE VISCOUS)(1:3:1) PO ONE (11:30)
[2022-07-22 12:25] LABS: CK-MB VALUE MASS 3.3 NG/ML (<3.6)
[2022-07-22 12:27] LABS: MB/CK RELATIVE INDEX 1.52 (< OR =4)
[2022-07-22] MEDS ORDERED: CIPROFLOXACIN 400 MG in IV 1 EA IV ONE (12:40)
[2022-07-22] MEDS ORDERED: CIPR500T39 PO (14:11)
[2022-07-22] MEDS ORDERED: FAMO40TA3 PO (14:11)
[2022-07-22 14:45] VITALS: BP 130/66
== END 2022-07-22 15:06 | disposition home or self-care (01) ==
LOC: EDBD 08:41 → M ED 08:41
DX: R07.9 Chest pain, unspecified (principal); N12 Tubulo-interstitial nephritis, not specified as acute or chronic; K86.9 Disease of pancreas, unspecified; E11.9 Type 2 diabetes mellitus without complications; I10 Essential (primary) hypertension; Z79.82 Long term (current) use of aspirin; Z79.84 Long term (current) use of oral hypoglycemic drugs; Z79.899 Other long term (current) drug therapy
CPT/HCPCS: 71045; 71275; 74178; 80047; 80076; 81001; 82550; 82553; 83690; 84439; 84443; 84484; 85025; 85610; 85730; 87088; 87186; 87631; 93005; 93041; 94760; 96365; 96366; 99285; J0744; Q9967

== ENCOUNTER → 2022-07-27 | Outpatient (REF) | payer MEDICARE, OTHER ==
[~2022-07-27] MED LIST changes: +CIPR500T39 PO; +FAMO40TA3 PO
[2022-07-27 17:11] LABS: C REACTIVE PROTEIN QUANTITATIV 18.8 MG/DL (<1.0); PERCENT SATURATION 9.2 % (19.7-50.0)
[2022-07-27 17:13] LABS: FERRITIN 1288.3 NG/ML (10.5-307.3)
[2022-07-27 17:30] LABS: CA19-9 TUMOR MARKER,CARBOHYDRA 20.6 U/ML (<35.0)
== END ==
LOC: M LAB REF 16:16
PROVIDERS: ATTEND Internal Medicine
DX: K86.2 Cyst of pancreas (principal); R25.2 Cramp and spasm; D64.9 Anemia, unspecified; R07.9 Chest pain, unspecified

== ENCOUNTER → 2022-08-04 | Outpatient (REF) | payer MEDICARE, OTHER | LOC: M LAB REF 16:08 | PROVIDERS: ATTEND Internal Medicine | DX: R07.9 Chest pain, unspecified (principal); R25.2 Cramp and spasm ==

== ENCOUNTER → 2022-08-17 | Outpatient (CLI) | payer MEDICARE, OTHER | LOC: M RAD 06:58 | PROVIDERS: ATTEND Internal Medicine | DX: R74.8 Abnormal levels of other serum enzymes (principal) ==

== ENCOUNTER → 2022-09-25 | Outpatient (REF) | payer MEDICARE, OTHER ==
[2022-09-25 17:53] LABS: IRON (FE) 34 UG/DL (65-175); PERCENT SATURATION 13.4 % (19.7-50.0); TOTAL IRON BINDING CAPACITY 253 UG/DL (250-425)
[2022-09-25 17:54] LABS: FERRITIN 469.8 NG/ML (10.5-307.3)
[2022-09-25 17:56] LABS: CARCINOEMBRYONIC ANTIGEN < 2.0 NG/ML (<2.5)
[2022-09-25 18:11] LABS: CA19-9 TUMOR MARKER,CARBOHYDRA 62.1 U/ML (<35.0)
== END ==
LOC: M LAB REF 16:25
PROVIDERS: ATTEND Internal Medicine
DX: K86.2 Cyst of pancreas (principal); D64.9 Anemia, unspecified

== ENCOUNTER → 2022-10-03 | Outpatient (CLI) | payer MEDICARE, OTHER | LOC: M RAD 08:25 | PROVIDERS: ATTEND Internal Medicine | DX: K81.1 Chronic cholecystitis (principal) | CPT/HCPCS: 78226; A9537 ==

== ENCOUNTER → 2023-01-17 | Outpatient (CLI) | payer MEDICARE, OTHER | LOC: M LAB 11:30 | PROVIDERS: ATTEND Nurse Practitioner Adult Health | DX: N42.9 Disorder of prostate, unspecified (principal) ==

== ENCOUNTER → 2023-06-25 | Outpatient (REF) | payer MEDICARE, OTHER ==
[~2023-06-25] MED LIST changes: +ACET650T61 PO; +ATOR1TAB19 PO; +DETR4CAP PO; +DICL100G10 TOP; +FERR32TA PO; +FEXO-111 PO; +MECL-86 PO; +OMEP40CA5 PO
[2023-06-25 14:25] LABS: PERCENT SATURATION 33.8 % (19.7-50.0)
[2023-06-25 14:28] LABS: FERRITIN 356.4 NG/ML (10.5-307.3)
== END ==
LOC: M LAB REF 13:42
PROVIDERS: ATTEND Internal Medicine
DX: D50.9 Iron deficiency anemia, unspecified (principal); K86.2 Cyst of pancreas

== ENCOUNTER 2023-07-04 10:17 | Day surgery (SDC) | payer MEDICARE, OTHER ==
[~2023-07-04] VITALS: Ht 190.5 cm; Wt 98.8 kg
[~2023-07-04 10:17] MED LIST changes: +NS 1,000 ML IV ONE
[2023-07-04] MEDS ORDERED: propofoL 200 MG/20 ML VIAL As Ordered ONE (11:25)
[2023-07-04] MEDS ORDERED: fentaNYL 100 MCG/2 ML INJECTION As Ordered ONE (11:25)
[2023-07-04] MEDS ORDERED: LIDOCAINE 2% 100MG/5ML SDV (FOR ANES.) As Ordered ONE (11:25)
[2023-07-04 11:38] VITALS: TEMP 97.2
[2023-07-04 11:50] VITALS: BP 158/77; O2SAT 97
== END 2023-07-04 12:19 | disposition home or self-care (01) ==
LOC: M OPP 10:17
PROVIDERS: ATTEND Internal Medicine Gastroenterology
DX: D50.9 Iron deficiency anemia, unspecified (principal); K29.70 Gastritis, unspecified, without bleeding; K22.89 Other specified disease of esophagus; E11.9 Type 2 diabetes mellitus without complications; Z79.02 Long term (current) use of antithrombotics/antiplatelets; Z79.1 Long term (current) use of non-steroidal anti-inflammatories (NSAID); Z79.82 Long term (current) use of aspirin; Z79.84 Long term (current) use of oral hypoglycemic drugs; Z79.899 Other long term (current) drug therapy
CPT/HCPCS: 43239; 88305; J3010

== ENCOUNTER → 2023-07-11 | Outpatient (CLI) | payer MEDICARE, OTHER ==
[~2023-07-11] MED LIST changes: -NS 1,000 ML IV ONE
== END ==
LOC: M RAD 10:21
PROVIDERS: ATTEND Internal Medicine
DX: R42 Dizziness and giddiness (principal)

== ENCOUNTER → 2023-07-26 | Outpatient (CLI) | payer MEDICARE, OTHER ==
[~2023-07-26] MED LIST changes: +PROHANCE 279.3MG/ML 15ML VIAL ONE; +PROHANCE 279.3MG/ML 5ML VIAL ONE
== END ==
LOC: M PLAIMG 12:40
PROVIDERS: ATTEND Internal Medicine
DX: R42 Dizziness and giddiness (principal); G45.3 Amaurosis fugax; R51.9 Headache, unspecified
CPT/HCPCS: 70544; 70553; A9576

== ENCOUNTER → 2023-08-13 | Outpatient (CLI) | payer MEDICARE, OTHER ==
[~2023-08-13] MED LIST changes: +ISOVUE-370 76% 100ML VIAL As Ordered ONE; -PROHANCE 279.3MG/ML 15ML VIAL ONE; -PROHANCE 279.3MG/ML 5ML VIAL ONE
== END ==
LOC: M RAD 09:05
PROVIDERS: ATTEND Internal Medicine
DX: R59.0 Localized enlarged lymph nodes (principal)
CPT/HCPCS: 70491; Q9967

== ENCOUNTER → 2023-09-21 | Outpatient (CLI) | payer MEDICARE, OTHER ==
[~2023-09-21] MED LIST changes: -ISOVUE-370 76% 100ML VIAL As Ordered ONE; +LIDOCAINE 1% MDV 20ML VIAL As Ordered ONE
[2023-09-21 10:15] VITALS: TEMP 97.6
[2023-09-21 10:45] VITALS: BP 140/68; O2SAT 99
== END ==
LOC: M IRPRO 09:56
PROVIDERS: ATTEND Otolaryngology
DX: D37.030 Neoplasm of uncertain behavior of the parotid salivary glands (principal)

== ENCOUNTER → 2024-01-22 | Outpatient (CLI) | payer MEDICARE, OTHER ==
[~2024-01-22] MED LIST changes: +DOXY-323 PO; -DOXY-443 PO; -LIDOCAINE 1% MDV 20ML VIAL As Ordered ONE
== END ==
LOC: M LAB 16:53
PROVIDERS: ATTEND Urology
DX: N40.1 Benign prostatic hyperplasia with lower urinary tract symptoms (principal); Z12.5 Encounter for screening for malignant neoplasm of prostate
CPT/HCPCS: 36415; G0103

== ENCOUNTER → 2024-03-26 | Outpatient (CLI) | payer MEDICARE, OTHER ==
[~2024-03-26] MED LIST changes: -DOXY-323 PO; +DOXY-441 PO
== END ==
LOC: M RAD 07:05
PROVIDERS: ATTEND Otolaryngology
DX: D11.0 Benign neoplasm of parotid gland (principal); R59.0 Localized enlarged lymph nodes

== ENCOUNTER → 2024-05-12 | Outpatient (REF) | payer MEDICARE, OTHER ==
[2024-05-12 19:43] LABS: PERCENT SATURATION 33.1 % (19.7-50.0)
[2024-05-12 19:45] LABS: FERRITIN 348.2 NG/ML (10.5-307.3)
== END ==
LOC: M LAB REF 17:19
PROVIDERS: ATTEND Internal Medicine
DX: D50.9 Iron deficiency anemia, unspecified (principal)

== ENCOUNTER → 2024-09-02 | Outpatient (CLI) | payer MEDICARE, OTHER | LOC: M RAD 12:44 | PROVIDERS: ATTEND Otolaryngology | DX: D11.0 Benign neoplasm of parotid gland (principal); R59.0 Localized enlarged lymph nodes ==

== ENCOUNTER 2025-02-14 13:45 | Emergency (ER) | payer MEDICARE, OTHER ==
[~2025-02-14] VITALS: Ht 195.6 cm; Wt 92.7 kg
[2025-02-14 16:01] VITALS: BP 152/65; O2SAT 99
[2025-02-14] MEDS ORDERED: HYDR-3713 PO (17:22)
[2025-02-14 17:38] VITALS: TEMP 97.7
== END 2025-02-14 17:47 | disposition home or self-care (01) ==
LOC: M ED 13:45
DX: S42.115A Nondisplaced fracture of body of scapula, left shoulder, initial encounter for closed fracture (principal); Y92.9 Unspecified place or not applicable; Y93.9 Activity, unspecified; Y99.9 Unspecified external cause status; W13.8XXA Fall from, out of or through other building or structure, initial encounter; E11.9 Type 2 diabetes mellitus without complications; I10 Essential (primary) hypertension; K21.9 Gastro-esophageal reflux disease without esophagitis; Z79.1 Long term (current) use of non-steroidal anti-inflammatories (NSAID); Z79.84 Long term (current) use of oral hypoglycemic drugs; Z79.899 Other long term (current) drug therapy

== ENCOUNTER → 2025-04-16 | Outpatient (CLI) | payer MEDICARE, OTHER ==
[~2025-04-16] MED LIST changes: +HYDR-3713 PO
== END ==
LOC: M RAD 13:53
PROVIDERS: ATTEND Otolaryngology
DX: D11.0 Benign neoplasm of parotid gland (principal)

== ENCOUNTER → 2025-05-12 | Outpatient (REF) | payer MEDICARE, OTHER ==
[2025-05-12 14:26] LABS: IRON (FE) 83.0 UG/DL (65-175); PERCENT SATURATION 29.5 % (19.7-50.0)
== END ==
LOC: M LAB REF 13:50
PROVIDERS: ATTEND Internal Medicine
DX: D50.9 Iron deficiency anemia, unspecified (principal)